=== PATIENT | female | born 1945 | race Caucasian/White ===

== ENCOUNTER → 2020-06-20 10:18 | Outpatient (CLI) | payer MEDICARE, OTHER, SELFPAY ==
--- NOTE | ~2020-06-20 | DEXA_ITS ---
Bone Density Report Name: Zahida Flower Age: 75 Sex: Female Ethnicity: White Date of : 1945 Indication: monitoring treatment; height loss; hysterectomy; postmenopausal Referring Provider: Odalys Cobian Study: Bone densitometry was performed. Exam Date: June 20, 2020 Accession number: [id number] Bone Density: Region BMD T-score Z-score Classification AP Spine (L1, L2) 1.191 1.9 4.2 Normal Femoral Neck (Left) 0.763 -0.8 1.4 Normal Total Hip (Left) 0.974 0.3 2.1 Normal Femoral Neck (Right) 0.720 -1.2 1.0 Osteopenia Total Hip (Right) 0.875 -0.6 1.3 Normal Total Hip Mean 0.925 -0.2 1.7 Normal World Health Organization criteria for BMD impression classify patients as: Normal (T-score at or above -1.0), Osteopenia (T-score between -1.0 and -2.5), or Osteoporosis (T-score at or below -2.5). 10-year Fracture Risk: FRAX not reported because: Treated for osteoporosis Previous Exams: Region Exam Age BMD T-score BMD Change BMD Change Date g/cm2 vs Baseline vs Previous Total Hip(Left) 06/20/2020 75 0.974 0.3 -0.016 -0.016 05/08/2011 66 0.990 0.4 Total Hip(Right) 06/20/2020 75 0.875 -0.6 -0.081* -0.081* 05/08/2011 66 0.956 0.1 *Denotes significance at 95% confidence level, LSC for Total Hip = 0.027 g/cm2 Clinical Information Provided by Patient: Is being treated for osteoporosis Has used the following medications: HRT (i.e. estrogen/hormone therapy), Vitamin D Has the following medical conditions: Hysterectomy Patient maximum height was 64 Menopause Age: 50 Drinks caffeinated beverages Onset of menses at age 12 Number of children 2 Impression: The patient has low bone mass, based on the Right Femoral Neck T-score. The BMD for the Total Hip(Right) decreased, changing by -0.081 since the last DXA exam. Discussion: SIGNIFICANT BONE LOSS OBSERVED. Adherence to therapy (including calcium and vitamin D intake) should be assessed. If compliance is not a factor, review management and exclusion of secondary causes of bone loss. It is important to ask patients whether they are taking their medications and to encourage continued and appropriate compliance with their osteoporosis therapies to reduce fracture risk. It is also important to review their risk factors and encourage appropriate calcium and vitamin D intakes, exercise, fall prevention and other lifestyle measures. Follow-Up: Consider a repeat BMD and Vertebral Fracture Assessment (VFA)
== END ==
PROVIDERS: PCP Internal Medicine; Visit Provider Clinical Nurse Specialist
DX: Z78.0 Asymptomatic menopausal state (principal); M85.851 Other specified disorders of bone density and structure, right thigh
CPT/HCPCS: 77080

== ENCOUNTER → 2020-11-03 02:29 | Outpatient (CLI) | payer MEDICARE, OTHER, SELFPAY ==
[2020-11-03 20:23] LABS: SARS-CoV-2 RNA PCR Negative
== END ==
PROVIDERS: PCP Internal Medicine; Visit Provider Internal Medicine Cardiovascular Disease
DX: Z01.812 Encounter for preprocedural laboratory examination (principal); Z20.822 Contact with and (suspected) exposure to COVID-19
CPT/HCPCS: C9803; U0003; U0005

== ENCOUNTER 2020-11-06 00:51 | Day surgery (SDC) | payer MEDICARE, OTHER, SELFPAY ==
[2020-11-05 10:56] VITALS: BMI 28.5
[2020-11-06] VITALS (19 sets, daily range): BP systolic 99–165; BP diastolic 45–88; PULSE 34–78; RESP 14–19; TEMP 36.3; O2SAT 97–100
--- NOTE | 2020-11-06 08:30 | ECG_ITS ---
Measurements Intervals [place] Rate: 62 P: SC: 0 QRS: 44 QRSD: 92 T: 32 QT: 415 QTc: 424 Interpretive Statements ATRIAL FIBRILLATION LOW QRS VOLTAGE IN PRECORDIAL LEADS BASELINE WANDER- V1-V2 ABNORMAL ECG Electronically Signed On 11-06-2020 8:39:57 CDT by Rajinder Pichardo D.O.
--- NOTE | 2020-11-06 08:30 | SUR.PREOP ---
ARRIVES AMBULATORY TO [facility] FOR SCHEDULED CARDIOVERSION W/ DR MAHARAJ. A&OX4 ON ARRIVAL, STEADY GAIT. DENIES CP OR SOB. REPORTS RECENT FATIGUE. ORIENTED TO ROOM, PLAN OF CARE, PROCEDURE. PRE CV EKG COMPLETED; SHOWS AFIB. IV STARTED, CONSENT SIGNED, VS OBTAINED. LAB RESULTS ALREADY ON CHART FROM PREVIOUS DRAW. WILL CONTINUE TO MONITOR.
--- NOTE | 2020-11-06 08:58 | ECG_ITS ---
Measurements Intervals [place] Rate: 40 P: 98 MN: 176 QRS: 47 QRSD: 86 T: 36 QT: 462 QTc: 378 Interpretive Statements SINUS BRADYCARDIA LOW QRS VOLTAGE IN PRECORDIAL LEADS ABNORMAL ECG Electronically Signed On 11-06-2020 9:27:31 CDT by Rajinder Pichardo D.O.
--- NOTE | 2020-11-06 09:07 | SUR.PHASEII ---
BEGIN PHASE II RECOVERY POST CARDIOVERSION W/ DR. MAHARAJ. 200J SYNC SHOCK X 2 REQUIRED TO ACHIEVE SB 40'S W/ PAC'S. AROUSABLE AT THIS TIME. BP STABLE. WILL CONTINUE TO MONITOR.
--- NOTE | 2020-11-06 09:10 | P.SEDATION_ITS ---
Moderate Sedation Note-Pt Data Patient Data Allergies Allergy/AdvReac Type Severity Reaction Status Date / Time dabigatran etexilate Allergy Unknown HEART BURN Unverified 08/20/14 10:21 Home Medications Medication Instructions Recorded Confirmed Type cetirizine 10 mg tablet 5 mg PO DAILY PRN 12/02/19 11/05/20 History cholecalciferol (vitamin D3) 50 50 mcg PO DAILY 12/02/19 11/05/20 History mcg (2,000 unit) capsule magnesium 250 mg tablet 250 mg PO DAILY 12/02/19 11/05/20 History tramadol 50 mg tablet 50 mg PO .qd PRN #20 tablet 05/22/20 11/05/20 Rx furosemide 20 mg tablet 20 mg PO DAILY PRN tablet 06/04/20 11/05/20 History spironolactone 25 mg tablet 25 mg PO DAILY 06/04/20 11/05/20 History conjugated estrogens 0.3 mg tablet See Rx Instructions .ROUTE 06/18/20 11/05/20 Rx .COMPLEX #90 tablet hydrochlorothiazide 50 mg tablet 50 mg PO DAILY #90 tablet 06/19/20 11/05/20 Rx metoprolol tartrate 50 mg tablet 50 mg PO Q12H #180 tablet 06/19/20 11/05/20 Rx rivaroxaban 20 mg tablet 20 mg PO DAILY #90 tablet 06/19/20 11/05/20 Rx levothyroxine 100 mcg tablet 100 mcg PO DAILY #90 tablet 07/12/20 11/05/20 Rx losartan 100 mg tablet 100 mg PO DAILY #90 tablet 07/23/20 11/05/20 Rx montelukast 10 mg tablet 10 mg PO DAILY #90 tablet 08/21/20 11/05/20 Rx amiodarone 200 mg PO BID 11/05/20 11/05/20 History Current Medications: Active Medications Sodium Chloride (Normal Saline Iv) 1,000 mls @ 30 mls/hr IV CONT .Q24H TELMA Sedation/Anesthesia: No previous sedation/anesthesia problems (including family history). [facility] Past Medical History Medical History (Updated 06/04/20 @ 10:33 by SHENA Fontenot) Allergies Atrial fibrillation CHF (congestive heart failure) Chronic back pain Hypertension Hypothyroidism Sleep apnea Vitamin deficiency Surgical History Surgical History (Updated 12/02/19 @ 08:53 by Pallavi Lin [facility]) H/O: hysterectomy Family History Family History (Updated 04/06/14 @ 07:13 by DOCTOR UNKNOWN) Mother Hypertension Social History Social History Smoking status: Never smoker Second hand tobacco smoke exposure: No Alcohol intake: never Substance use: never Substance use type: does not use Living arrangements: with family Gender identity (if verbalized by the patient): Female Sexual Orientation (if Verbalized by the Patient): Straight or Heterosexual Spiritual care concerns: No Mod Sed Physical Exam Physical Exam Pre Procedural Exam: Normal: Airway Hours since solid foods: 10 Hours since liquid intake: 10 Internal Medicine - PN: Obj Da Meds/Results Medications: Active Medications Generic Name Dose Route Start Last Admin Trade Name Freq PRN Reason Stop Dose Admin Sodium Chloride 1,000 mls @ 30 mls/hr 11/06/20 08:30 Normal Saline Iv IV CONT .Q24H [facility] ASA Classification/Sedation ASA Classification/Sedation Risks: Risks, benefits and alternatives explained and patient/family accepted plan for sedation. Patient re-evaluated immediately prior to sedation.
--- NOTE | 2020-11-06 09:13 | WPDCARDVER ---
Cardioversion Cardioversion Date of procedure: 11/06/20 Description of procedure: DATE OF PROCEDURE: 11/06/2020 INDICATION FOR PROCEDURE: Symptomatic persistent atrial fibrillation PROCEDURES PERFORMED: 1. Successful synchronized DC cardioversion with quaker of sinus rhythm 2. Moderate sedation -CPT 71437 SEDATION: Propofol 50 mg IV in divided doses ; start time 0854, stop time 0905; total [id number]-ga-[id number] time 11 minutes; Camryn Blanton RN was trained observer for the moderate sedation. PROCEDURE: Informed consent was taken prior to the procedure. Transcutaneous pads were placed in the right parasternal and left paravertebral positions. After adequate conscious sedation with IV propofol, synchronized DC cardioversion was performed with 200 joules. Patient remained in the atrial fibrillation. Therefore, under the DC cardioversion at 200 joules was performed with quaker of sinus rhythm/ sinus bradycardia. Patient's heart rate was in 40s to 50 Post cardioversion. Postprocedure EKG showed sinus bradycardia. Patient tolerated procedure well without any immediate procedure related complications. RECOMMENDATIONS: Patient will continue on chronic anticoagulation with rivaroxaban. Due to bradycardia at present, her beta-kristine will be put on hold for now. Patient will continue on maintenance treatment of amiodarone for rhythm control. Outpatient EKG in about 1 week.
--- NOTE | 2020-11-06 10:00 | SUR.PHASEII ---
HR HAS BEEN RUNNING 38-42 SB W/ PAC'S ON MONITOR. BP STABLE. DENIES PAIN OR SOB. ADVISED TO CHANGE POSITIONS SLOWLY AND REST TODAY WHEN HOME. REVIEWED HOW TO CHECK PULSE RATE AT HOME. WILL CONTINUE TO MONITOR.
--- NOTE | 2020-11-06 11:00 | SUR.PHASEII ---
DR. MAHARAJ RETURNS TO [facility]. STOPPED BY TO SEE PT. UPDATED ON LOW HR 38-44 SB W/ PAC'S. PT ASKED QUESTIONS ABOUT AMIODARONE. REVIEWED HOLDING METOPROLOL, POTASSIUM AND DECREASING AMIODARONE TO 200MG PO DAILY. WILL MONITOR PT. ANOTHER HOUR TO OBSERVE HR AND TOLERANCE OF ACTIVITY.
--- NOTE | 2020-11-06 11:34 | SUR.PHASEII ---
DANGLED AT BEDSIDE, AMBULATED TO BATHROOM. AT BEDSIDE. DENIES PAIN OR SOB. HR REMAINS SB IN 40'S. BP STABLE.
--- NOTE | 2020-11-06 11:55 | SUR.PHASEII ---
PT. HAS BEEN UP AT BEDSIDE, WALKED TO BATHROOM. STEADY. DENIES DIZZNESS. HR REMAINS 30'S TO 40'S SB W/ STABLE BP. DR. MAHARAJ UPDATED ON PT. TOLERANCE OF ACTIVITY AND VS. ORDERS RECEIVED TO HOLD METOPROLOL AND AMIODARONE UPON DISCHARGE AND FOLLOW UP IN OFFICE FOR EKG IN 2 DAYS. PT. UPDATED AND VOICES UNDERSTANDING. OK FOR PT. TO DISCHARGE HOME.
--- NOTE | 2020-11-06 12:40 | SUR.PHASEII ---
PT. IS DRESSED AND READY FOR DISCHARGE. AGAIN VOICES NO C/O, NO DIZZINESS WITH ACTIVITY. REVIEWED DISCHARGE INSTRUCTIONS W/ PT. ALL QUESTIONS ANSWERED. VOICED UNDERSTANDING OF ALL.
--- NOTE | 2020-11-06 12:50 | SUR.PHASEII ---
DISCHARGED HOME, OUT VIA WC TO 'S WAITING CAR W/ ALL PERSONAL BELONGINGS AND DISCHARGE INSTRUCTIONS. VOICES NO C/O. NO DISTRESS NOTED.
== END 2020-11-06 12:50 | disposition home or self-care (01) ==
PROVIDERS: PCP Internal Medicine; Visit Provider Internal Medicine Cardiovascular Disease
PROC: 5A2204Z Restoration of Cardiac Rhythm, Single (ICD-10-PCS; principal; 2020-11-06 10:00)
DX: I48.19 Other persistent atrial fibrillation (principal); E03.9 Hypothyroidism, unspecified; I11.0 Hypertensive heart disease with heart failure; I50.9 Heart failure, unspecified; G47.30 Sleep apnea, unspecified; Z79.01 Long term (current) use of anticoagulants
CPT/HCPCS: 92960; 93005; J2704; J7040

== ENCOUNTER → 2021-01-02 11:59 | Outpatient (CLI) | payer MEDICARE, OTHER, SELFPAY ==
--- NOTE | ~2021-01-02 | MM_ITS ---
EXAMINATION: MM screening bob BI w libia HISTORY: Screening mammogram TECHNIQUE: Craniocaudal and mediolateral oblique 3-D tomosynthesis images were obtained and synthetic 2-D images were generated. CAD analysis was submitted and interpreted. COMPARISON: 09/08/2019, 05/2018, 03/30/2017 bilateral digital screening mammogram examinations BREAST PARENCHYMAL COMPOSITION: There are scattered areas of fibroglandular density. FINDINGS: History of incisional breast biopsy on the right in the , with benign diagnosis. Stabl e mild fibroglandular asymmetry. There is no evidence of suspicious mass, calcification, or architect naval ural distortion to suggest malignancy in either breast. There has been no suspicious interval change. IMPRESSION: 1. No mammographic evidence of malignancy. 2. Recommend routine screening mammography in one year. BI-RADS Category 2: Benign finding(s). Reviewed, dictated and finalized at location D.
== END ==
PROVIDERS: PCP Internal Medicine; Visit Provider Internal Medicine
DX: Z12.31 Encounter for screening mammogram for malignant neoplasm of breast (principal)
CPT/HCPCS: 77063; 77067